=== PATIENT | female | born 1990 | race Caucasian/White ===

== ENCOUNTER 2017-12-17 08:47 | Emergency (ER) | payer OTHER ==
[2017-12-17] MEDS ORDERED: MOTRIN 600 MG PO ONE (09:29)
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
[2017-12-17] MEDS ORDERED: MOTRIN 600 MG ONE (09:54)
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
[2017-12-17 10:53] VITALS: BP 120/75; PULSE 84; O2SAT 100
== END 2017-12-17 10:54 | disposition home or self-care (01) ==
LOC: ED 08:47
DX: S00.33XA Contusion of nose, initial encounter (principal); S70.01XA Contusion of right hip, initial encounter; M25.551 Pain in right hip; J34.89 Other specified disorders of nose and nasal sinuses; V49.9XXA Car occupant (driver) (passenger) injured in unspecified traffic accident, initial encounter
CPT/HCPCS: 70160; 73502; 99284; A9270-GY